=== PATIENT | female | born 1970 | race Two or more races ===

== ENCOUNTER 2024-09-05 05:48 | Day surgery (SDC) | payer OTHER ==
[2024-09-03 10:30] VITALS: BP 113/76
[~2024-09-05] VITALS: Ht 162.6 cm; Wt 85.3 kg
[~2024-09-05 05:48] MED LIST: TAMOXIFEN CITRA20 MG PO; [UNRECOGNIZED DRUG - OTHER] PO
[2024-09-05] MEDS ORDERED: POVIDONE-IODINE 118 ML BOTT TOP ONE (18:30)
[2024-09-05] MEDS ORDERED: EPINEPHRINE HCL/PF 1 MG/ML AMPUL IR ONE (18:30)
[2024-09-05] MEDS ORDERED: POVIDONE-IODINE SCRUB 118 ML BOTT TOP ONE (18:30)
[2024-09-05] MEDS ORDERED: CEFAZOLIN SODIUM 1,000 MG VIAL IV ONE (18:30)
[2024-09-05] MEDS ORDERED: MORPHINE SULFATE 4 MG/ML VIAL IV ONE (21:55)
== END 2024-09-05 23:05 | disposition home or self-care (01) ==
LOC: CIR.AMB 05:48
PROVIDERS: ATTEND Surgery
DX: C50.211 Malignant neoplasm of upper-inner quadrant of right female breast (principal); R59.0 Localized enlarged lymph nodes; N60.81 Other benign mammary dysplasias of right breast; N62 Hypertrophy of breast; Z88.2 Allergy status to sulfonamides